=== PATIENT | male | born 1990 | race Caucasian/White ===

== ENCOUNTER 2019-12-12 13:44 | Emergency (ER) | payer BC ==
[~2019-12-12] VITALS: Ht 177.8 cm; Wt 105.0 kg
[2019-12-12 13:59] VITALS: BP 128/88
== END 2019-12-12 14:35 | disposition home or self-care (01) ==
LOC: ER 13:44
DX: B34.9 Viral infection, unspecified (principal); R06.02 Shortness of breath; R50.9 Fever, unspecified; M79.18 Myalgia, other site
CPT/HCPCS: 71045; 93005; 99283

== ENCOUNTER 2019-12-18 17:44 | Emergency (ER) | payer BC ==
[~2019-12-18] VITALS: Ht 177.8 cm; Wt 95.5 kg
[2019-12-18 19:35] LABS: BASOPHILS # (AUTO) 0.1 X10'3 (0-0.2); BASOPHILS % (AUTO) 0.9 % (0-1); EOSINOPHILS # (AUTO) 0.3 X10'3 (0-0.9); HEMATOCRIT 46.2 % (42.0-52.0); LYMPHOCYTES % (AUTO) 34.6 % (21-51); MEAN CORPUSCULAR HEMOGLOBIN 30.2 PG (27.0-31.0); MEAN CORPUSCULAR HGB CONC 34.5 g/dL (33.0-36.5); MEAN CORPUSCULAR VOLUME 87.3 FL (78-98); MONOCYTES # (AUTO) 0.5 X10'3 (0-0.9); NEUTROPHILS % (AUTO) 50.5 % (42-75); PLATELET COUNT 243 X10'3 (140-440); RED CELL DISTRIBUTION WIDTH 12.6 % (11.5-14.5); WHITE BLOOD COUNT 5.8 X10'3 (4.5-11.0)
[2019-12-18 19:50] LABS: ALANINE AMINOTRANSFERASE 51 U/L (12-78); ALBUMIN 4.4 G/DL (3.4-5.0); ALBUMIN/GLOBULIN RATIO 1.4 (1.1-1.5); ALKALINE PHOSPHATASE 69 IU/L (46-116); ANION GAP 8 (8-16); ASPARTATE AMINO TRANSFERASE 23 U/L (10-37); BILIRUBIN,TOTAL 0.2 MG/DL (0.1-1.0); BLOOD UREA NITROGEN 13 MG/DL (7-18); BUN/CREATININE RATIO 10.2 (5.4-32.0); CALCIUM 9.4 MG/DL (8.5-10.1); CHLORIDE 108 MMOL/L (99-107); CREATININE 1.27 MG/DL (0.60-1.10); GLUCOSE 98 MG/DL (70-104); POTASSIUM 4.2 MMOL/L (3.5-5.1); SODIUM 142 MMOL/L (135-145); TOTAL CARBON DIOXIDE 26.4 MMOL/L (24-32); TOTAL PROTEIN 7.5 G/DL (6.4-8.2); eGFR 68 ML/MIN
[2019-12-18 19:53] LABS: D-DIMER < 0.19 MG/L FEU (0-0.50)
[2019-12-18 20:31] VITALS: BP 158/95
== END 2019-12-18 20:34 | disposition home or self-care (01) ==
LOC: ER 17:45
DX: J40 Bronchitis, not specified as acute or chronic (principal); Z20.828 Contact with and (suspected) exposure to other viral communicable diseases; R53.83 Other fatigue
CPT/HCPCS: 36415; 80053; 85025; 85379; 87635; 99283